=== PATIENT | female | born 1995 | race Two or more races ===

== ENCOUNTER 2024-09-02 08:52 | Outpatient (AMB) | payer BC, SELFPAY ==
[2024-09-02 09:06] VITALS: BP 118/79; PULSE 70; RESP 16; TEMP 35.7; O2SAT 99; BMI 23.4
--- NOTE | 2024-09-02 09:06 | GYNCLNT_ITS ---
Vital Signs 09/02/24 09:06 Height 1.57 m Height Method Stated Weight 58.117 kg Weight Measurement Method Standing Scale BMI 23.4 BP 118/79 Blood Pressure Source Automatic Cuff Blood Pressure Location Left Upper Arm Position Sitting Respiration 16 Pulse 70 Pulse Source Monitor Temp 96.3 F L Temp Source Oral Pulse Oximetry (%) 99 Oxygen Delivery Method Room Air Allergies/Home Meds Allergies & Medications Allergies No Known Allergies Allergy (Verified 09/02/24 09:07) Medication Reconciliation vit no.95-ferrous fumarate 28 mg-folic acid 800 mcg tablet () 1 tab PO QDAY 01/12/24 [History Confirmed 09/02/24] Intake Visit Data Collection New Patient or Established: Established Patient (seen at [facility] within 3 years) Reason for Visit:: Clearance Seen by Clinical Staff ONLY (RN/MA): No Toggle Press Folder And Feeder Required: No Do You Feel Safe at Home: Yes Authorities Contacted: N/A PCP or OBGYN visit in last 3 months: Yes Hx Now: No Pain Present Currently: No Pain Scale Used: Nguyen-Santiago/Numerical Pain scale:: 0 Smoking Status Smoking Status: Never smoker Union Organiser history Union Organiser History Menstrual regularity: regular Flow: normal Monthly: Yes Menopausal: No Currently sexually active: Yes Questionnaires Covid-19 Vaccine Questionnaire Has patient been vacinated for Covid-19 Have you been vacinated for Covid-19: Yes PHQ-9 PHQ-2 Over the last 2 weeks, how often have you been bothered by any of the following problems? 1. Little interest or pleasure in doing things: not at all 2. Feeling down, depressed, or hopeless: not at all Total score: 0 PHQ-9 3. Trouble falling or staying asleep, or sleeping too much: Not at all 4. Feeling tired or having little energy: Not at all 5. Poor appetite or overeating: Not at all 6. Feeling bad about yourself - or that you are a failure or have let yourself or your family down: Not at all 7. Trouble concentrating on things, such as reading the newspaper or watching television: Not at all 8. Moving or speaking so slowly that other people could have noticed? - Or the opposite - being so fidgety or restless that you have been moving around a lot more than usual: not at all 9. Thoughts that you would be better off or of hurting yourself in some way: Not at all Total score: 0 If you checked off any problems, how difficult have these problems made it for you to do your work, take care of things at home, or get along with other people?: not difficult at all Source: Developed by Drs. Franko Tomlinson, Kayla Blount, Arslan Ortiz and colleagues, with an educational mimi from [id number]. Depression screen completed yes Social History Living Situation History Lives With: Family Housing: House Tobacco History Smoking Status: Never smoker Second Hand Smoke Exposure: No Alcohol History Alcohol Intake: Never Domestic Abuse History Do You Feel Safe at Home: Yes Past Medical History Past Medical History Have you ever been diagnosed with any of the following: Cardiology Problems Congestive Heart Failure: No Respiratory Problems Chronic Obstructive Pulmonary Disease (COPD): No Genital/Urinary Problems Renal Disease: No Reproductive Problems Endometriosis: No Genital Herpes: No Gonorrhea: No Pelvic Inflammatory Disease: No Previous Pregnancies: No Syphilis: No Uterine Prolapse: No Endocrine Problems Diabetes Mellitus Type 1: No Diabetes Mellitus Type 2: No Other Problems Cancer: No History of Present Illness HPI Narrative Berenice Hendricks, a patient, presents for clearance to return to work following maternity leave. She gave to a son in December of last year, approximately 7 months ago. The patient reports feeling ready to return to work, though she acknowledges it will be challenging after spending nearly 7 months with her baby. She is seeking a letter clearing her to return to work without restrictions. The patient's last day of maternity leave is September 05, and she plans to return to work on September 09 due to her workplace's spring break schedule. She mentions that her union has informed her she risks termination if she does not return to work. The patient does not report any specific health concerns or complications related to her period. She indicates that she is still using control from a previous prescription and does not require any new prescriptions at this time. Her obstetric history includes one resulting in one live ( A0 L1). She delivered a male infant in December 2023, who is currently about 7 months old. 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 Review of Systems Review of Systems Systems Reviewed: All systems reviewed, normal except as documented Exam General Limitations: no limitations General Appearance: alert, in no apparent distress, comfortable, cooperative, healthy appearing, well developed and well groomed Head Head exam: atraumatic, normocephalic and normal inspection Eye Eye exam: Present normal appearance, PERRL and EOMI ENT ENT exam: Present normal exam, normal oropharynx and mucous membranes moist Neck Neck exam: Present normal inspection, full ROM and trachea midline Chest Chest inspection: Present normal inspection and symmetric chest wall rise Abdominal Abdominal exam: Present soft and normal bowel sounds Psych Psychiatric exam: Present normal affect and normal mood Skin Skin exam: Present warm, dry, intact and normal color Assessment & Plan Diagnosis / Problem List (1) delivery delivered: Status: Acute (2) care and examination: Status: Acute Plan Care and Return to Work Plan: - Provide return to work clearance letter for patient to return on September 09. - Clear patient to return to work with no restrictions. - Offer prescription for control if needed (patient declined due to existing supply). Assessment: - Patient is approximately 7 months . - Infant born in December of last year. - Patient preparing to return to work at [employer]. - Patient appears to be recovering well from childbirth. - No reported complications or concerns. Office Procedures OB Clinic LOC & Office Proc's Nursing/Assessment Patient Status: Established Patient OB Clinic Nursing Assessment: BP Monitoring, Medication Reconciliation, Update PMH in EMR and Vital Signs OB Clinic Coordination of Care: Complex Care and Chronic Disease 1-5, Consent,records obtained, informed consent, Education Simp Pt/Fam and Staff clarify orders Established Patient Charge Established Patient Point Assignment: 100 Established Patient Point Charge: EP Level 3 (80-115)
== END 2024-09-02 09:15 | disposition home or self-care (01) ==
LOC: HODSOBC 08:52
PROVIDERS: Supervising Provider Obstetrics & Gynecology; Visit Provider Obstetrics & Gynecology
DX: Z39.2 Encounter for routine postpartum follow-up (principal)
CPT/HCPCS: 99213; G0463

== ENCOUNTER 2025-01-03 11:06 | Emergency (ER) | payer BC, SELFPAY ==
[2025-01-03 11:42] VITALS: BP 117/80; PULSE 74; RESP 17; TEMP 36.9; O2SAT 100; BMI 23.8
--- NOTE | 2025-01-03 12:04 | XR_ITS ---
Examination: OB Transvaginal ultrasound of the pelvis, complete Technique: Transvaginal sonographic images pelvis performed using pryor scale imaging Exam date and time: January 03, 2025, 1212 hrs. Indications: Revision of otherwise normal . Findings: Uterus 9.5 cm CRL 0.9 cm corresponds to 5 weeks 5 day gestational age. No pole, no cardiac activity Subchorionic hemorrhage 18 mm. Right ovary 2.3 cm arterial flow. Left ovary cm arterial flow, cyst 12 mm Impression: Empty intrauterine gestational sac corresponding to 5 weeks 5 day gestational age Recommend short-term follow-up to confirm viability..
--- NOTE | 2025-01-03 12:06 | EDNOTE_ITS ---
<Statement entered by Mayra Medley MD - 01/04/25 06:28> As co-signing physician, I was present and available for consult prn. I concur with the plan and care as documented by the midlevel provider. ED OB Contraction Preg RMI/HPI General Chief complaint: Recheck/Abnormal Lab/Rx Stated complaint: 7 weeks OB, rule out ectopic Time Seen by Provider: 01/03/25 11:12 Arrival date/time: 01/03/25 11:06 RME / HPI RME / HPI Narrative: 29-year-old female patient came in for evaluation regarding concern about possible ectopic . Patient is a 2 para 1, about 7 weeks , was [facility] to rule out ectopic . Patient's been complaining of low back pain and right shoulder pain. Patient denies any vaginal bleeding denies any spotting denies any abdominal pain patient is ambulatory. Denies any other complaints. She had an ultrasound done in the clinic and they cannot find gestational sac intrauterine. Related Data Home Medications ?Medication ?Instructions ?Recorded ?Confirmed vit no.95-ferrous 1 tab PO QDAY 01/12/2408/19 fumarate 28 mg-folic acid 800 mcg tablet () Allergies Allergy/AdvReac Type Severity Reaction Status Date / Time No Known Allergies Allergy Verified 01/03/25 11:11 Review of Systems Review of Systems Narrative Review of Systems: Review of system reviewed and within normal limits except mentioned in HPI ED Exam Narrative Physical exam: VITAL SIGNS: Reviewed. GENERAL APPEARANCE: Alert and interactive, follows commands, no acute distress, HEAD AND FACE: Non-traumatic. ENT: PERRL, pink conjunctivitis, eyelid no trauma, Mucous membrane moist. NECK: Supple, nontender, no nuchal rigidity. CHEST: No tenderness, no crepitus, no paradoxical movement, no retractions. LUNGS: Clear, well ventilated, symmetric, no rales, no wheezing, no ronchi, no stridor, good breath sounds bilaterally. HEART: Regular rate, regular rhythm, no murmur, no gallops. ABDOMEN: Soft, positive bowel sounds, nondistended, no guarding, nontender, no rebound, no masses, RECTAL: Deferred. GENITAL: Deferred. NEUROLOGICAL: Gross motor function intact sensory function intact, Appropriate for age. MUSCULOSKELETAL: low back nontender, full range of motion. EXTREMITIES: Nontender, full range of motion. SKIN: Color pink, dry, no rash, no lacerations, no abrasions, no contusions. LYMPHATICS: Deferred. Course Quality Measures none Orders Category Date Time Status US OB transvaginal Stat Exams 01/03/25 12:04 Completed ABO/RH Type Stat Lab 01/03/25 13:31 Completed Basic Metabolic Panel Stat Lab 01/03/25 13:31 Completed Beta HCG,Quantitative Stat Lab 01/03/25 13:31 Completed CBC Stat Lab 01/03/25 13:31 Completed Urinalysis Stat Lab 01/03/25 13:29 Completed Vital Signs Vital signs: Vital Signs Temperature 98.5 F 01/03/25 11:42 Pulse Rate 74 01/03/25 11:42 Respiratory Rate 17 01/03/25 11:42 Blood Pressure 117/80 01/03/25 11:42 Pulse Oximetry (%) 100 01/03/25 11:42 Oxygen Delivery Method Room Air 01/03/25 11:42 OB/Uterine Contractions MDM Narrative MDM Narrative:: 29-year-old female patient came in for evaluation regarding concern about possible ectopic . Patient is a 2 para 1, about 7 weeks , was [facility] to [facility] out ectopic . Patient's been complaining of low back pain and right shoulder pain. Patient denies any vaginal bleeding denies any spotting denies any abdominal pain patient is ambulatory. Denies any other complaints. She had an ultrasound done in the clinic and they cannot find gestational sac intrauterine. CBC came back unremarkable. BMP unremarkable. Urinalysis no UTI. Patient hCG was noted to be 8267. Ultrasound showed small subchorionic hemorrhage, empty gestational sac about 5 weeks gestation. Results discussed with the patient and was also given a copy of her ultrasound. She is stable for discharge home Patient data External records reviewed:: None Clinical information provided by:: patient Social determinants that could affect healthcare access:: none Patient has the following chronic illnesses:: None How is presenting disease/condition affected by chronic disease/condition?: no chronic disease Evaluation data The following diagnostics were reviewed and interpreted by me:: lab results and radiology exam(s) Lab and/or radiology exams considered but not ordered:: None Interpretation Summary: See results MDM Medications / Prescriptions Medications or Prescriptions considered but not ordered:: None Medication administrations:: None Consultations Consultation(s) initiated? (list below): No Diagnosis OB Contractions Differential Diagnosis: other (Ectopic , subchorionic hemorrhage, ) Most likely diagnosis given after review of the tests above:: , subchorionic hemorrhage Admission Indicated Admission indicated?: not indicated Explain why admission is indicated or not indicated:: None Admission Request Was there a request for admission?: No Disposition Plan Disposition Plan: Discharge Discharge Attestation Discharge Attestation: The patient and all family members were given an opportunity to ask questions and understood the discharge instructions. Discharge instructions specifically effects, indications for sooner follow up or return to the emergency department, and the expected course of current diagnosis. Patient condition: Stable Discharge Plan Plan Patient Disposition: HOME (Self Care) Discharge Disposition comment: stable Prescriptions/Referrals Prescriptions/Med Rec: No Action PNV no.95-ferrous fumarate-FA [] 28 mg iron- 800 mcg tablet 1 tab PO QDAY Patient Comments: TAKE 1 TABLET BY MOUTH EVERY DAY Referrals: Matthew Monteiro MD [Primary Care Provider] - In 1 week Problem List Clinical Impression: Currently , Subchorionic hemorrhage Patient/Caregiver Discharge Instructions Discharge Activity: activity as tolerated Education Materials: First Trimester Additional Instructions: Thank you for the opportunity for serving you today. You are stable for discharged . You are advised to: Follow-up with your YARN MAN in 1 to 2 days Return to ED for worsening of symptoms Increase oral fluids No jumping, no running, no lifting, until cleared by [facility] Print Language: Polish Stand Alone Forms: Bronwyn Award Info., Patient Portal Info Letter CANDIDO/ERNESTO Supervising Physician JEFFERSON Supervising Physician: MD Jasmyne
[2025-01-03 13:38] LABS: Collection Type, Urine Clean Catch; RBC,Urine 0 /hpf (0-3)
[2025-01-03 13:44] LABS: Basophils # (Auto) 0.1 Thou/mm3 (0.0-0.2); Basophils % (Auto) 1 % (0-2.5); Eosinophils # (Auto) 0.3 Thou/mm3 (0.0-0.5); Eosinophils % (Auto) 3 % (0-10); Hematocrit 45.5 % (36.0-46.0); Hemoglobin 15.4 g/dL (12.0-16.0); Immature Granulocytes Auto 0.01 Thou/mm3 (0.00-0.00); Lymphocytes # (Auto) 2.4 Thou/mm3 (1.0-4.8); Lymphocytes % (Auto) 24 % (10-50); Mean Corpuscular HGB Conc 33.8 g/dl (31.0-37.0); Mean Corpuscular Hemoglobin 30.2 pg (25.0-35.0); Mean Corpuscular Volume 89 fL (80-100); Monocytes # (Auto) 0.5 Thou/mm3 (0.0-0.8); Monocytes % (Auto) 5 % (0-12); Neutrophils # (Auto) 6.7 Thou/mm3 (1.8-7.7); Neutrophils % (Auto) 68 % (37-80); Nucleated Red Blood Cell # 0.00 Thou/mm3 (0.00-0.00); Nucleated Red Blood Cell % 0 /100 WBC (0); Platelet Count 390 Thou/mm3 (140-440); RDW Standard Deviation 42.0 fL (36.4-46.3); Red Blood Count 5.10 Miln/mm3 (4.00-5.20); White Blood Count 9.9 Thou/mm3 (3.6-11.0)
[2025-01-03 13:53] LABS: Bacteria,Urine Rare; Bilirubin,Urine Negative (Negative); Blood,Urine Negative (Negative); Clarity,Urine Clear (Clear/Hazy); Color,Urine Colorless (Lt Yel-Yel); Glucose, Urine Negative (Negative); Ketones,Urine Negative (Negative); Nitrite,Urine Negative (Negative); PH,Urine 6.5 (5.0-7.0); Protein,Urine Negative (Neg - Trace); Specific Gravity,Urine 1.010 (1.001-1.035); Squamous Epithelial Cell,Urine 4 /hpf (0-5); Urobilinogen,Urine Negative mg/dL (0.0-1.0); WBC,Urine 1 /hpf (0-5)
[2025-01-03 13:57] LABS: Leukocyte Esterase,Urine Negative (Negative)
[2025-01-03 14:00] LABS: Anion Gap 12 (7-16); BUN/Creatinine Ratio 10 Ratio (12-20); Blood Urea Nitrogen 6 mg/dL (9-23); Calcium 10.5 mg/dL (8.3-10.6); Carbon Dioxide 22.3 mMol/L (20.0-31.0); Chloride 105 mMol/L (98-107); Creatinine (Component) 0.6 mg/dL (0.6-1.3); Estimated Creatinine Clearance 109.4 mL/min (>60); Glucose 89 mg/dL (74-106); Osmolality,Calculated 274 (275-295); Potassium 3.8 mMol/L (3.4-5.1); Sodium 139 mMol/L (136-145); eGFR > 60 See Note
[2025-01-03 14:25] LABS: Beta HCG,Quantitative 8267 mIU/mL (<5.0)
[2025-01-03 14:49] VITALS: BP 116/66; PULSE 69; RESP 18; TEMP 36.1; O2SAT 100
== END 2025-01-03 14:50 | disposition home or self-care (01) ==
PROVIDERS: Nurse Practitioner Family; Emergency Provider Emergency Medicine; PCP Family Medicine
DX: O20.8 Other hemorrhage in early pregnancy (principal); Z3A.01 Less than 8 weeks gestation of pregnancy
CPT/HCPCS: 36415; 76817; 80048; 81001; 84702; 85025; 86900; 86901; 99283

== ENCOUNTER 2025-01-14 10:36 | Emergency (ER) | payer BC, SELFPAY ==
--- NOTE | 2025-01-14 11:12 | XR_ITS ---
Examination: Complete OB ultrasound, less than 14 weeks, transabdominal Date and time of exam: 01/14/2025, 12:09 PM. INDICATION: Blood clots. COMPARISON: 01/03/2025 Technique: Obstetrical ultrasound images less than 14 weeks performed via transabdominal imaging Findings: Uterus measures 11.1 x 4.7 x 6.0 cm. No evidence of gestational sac or pole.. Normal-appearing 7 mm endometrial stripe. Bilateral ovaries are within normal limits. No evidence fluid in the cul-de-sac. IMPRESSION: No evidence of intrauterine seen at this time. .
[2025-01-14 11:14] VITALS: BP 127/90; PULSE 76; RESP 16; TEMP 37.2; O2SAT 97; BMI 23.8
[2025-01-14 11:43] LABS: Basophils # (Auto) 0.1 Thou/mm3 (0.0-0.2); Basophils % (Auto) 1 % (0-2.5); Eosinophils # (Auto) 0.4 Thou/mm3 (0.0-0.5); Eosinophils % (Auto) 4 % (0-10); Hematocrit 42.9 % (36.0-46.0); Hemoglobin 14.8 g/dL (12.0-16.0); Immature Granulocytes Auto 0.01 Thou/mm3 (0.00-0.00); Lymphocytes # (Auto) 2.1 Thou/mm3 (1.0-4.8); Lymphocytes % (Auto) 27 % (10-50); Mean Corpuscular HGB Conc 34.5 g/dl (31.0-37.0); Mean Corpuscular Hemoglobin 30.5 pg (25.0-35.0); Mean Corpuscular Volume 89 fL (80-100); Monocytes # (Auto) 0.5 Thou/mm3 (0.0-0.8); Monocytes % (Auto) 6 % (0-12); Neutrophils # (Auto) 4.9 Thou/mm3 (1.8-7.7); Neutrophils % (Auto) 61 % (37-80); Nucleated Red Blood Cell # 0.00 Thou/mm3 (0.00-0.00); Nucleated Red Blood Cell % 0 /100 WBC (0); Platelet Count 342 Thou/mm3 (140-440); RDW Standard Deviation 41.0 fL (36.4-46.3); Red Blood Count 4.85 Miln/mm3 (4.00-5.20); White Blood Count 7.9 Thou/mm3 (3.6-11.0)
[2025-01-14 12:01] LABS: Alanine Aminotransferase 14 U/L (10-49); Albumin, Serum 4.7 gm/dL (3.5-5.0); Albumin/Globulin Ratio 1.6 (1.2-2.2); Alkaline Phosphatase 63 U/L (46-116); Anion Gap 6 (7-16); Aspartate Amino Transferase 17 U/L (0-34); BUN/Creatinine Ratio 8 Ratio (12-20); Bilirubin,Total 1.2 mg/dL (0.3-1.2); Blood Urea Nitrogen < 5 mg/dL (9-23); Calcium 10.1 mg/dL (8.3-10.6); Calcium (Corrected) 10.1 mg/dL (8.5-10.1); Carbon Dioxide 26.1 mMol/L (20.0-31.0); Chloride 108 mMol/L (98-107); Creatinine (Component) 0.6 mg/dL (0.6-1.3); Estimated Creatinine Clearance 109.4 mL/min (>60); Globulin 2.9 gm/dL (2.3-3.5); Glucose 88 mg/dL (74-106); Osmolality,Calculated 275 (275-295); Potassium 3.8 mMol/L (3.4-5.1); Sodium 140 mMol/L (136-145); Total Protein 7.6 gm/dL (5.7-8.2); eGFR > 60 See Note
[2025-01-14 12:10] LABS: Beta HCG,Quantitative 3236 mIU/mL (<5.0)
--- NOTE | 2025-01-14 13:35 | EDNOTE_ITS ---
ED OB Contraction Preg RMI/HPI General Chief complaint: Vaginal Bleeding Stated complaint: HEAVY BLEEDING & CRAMPING; PREG 7W Time Seen by Provider: 01/14/25 11:12 Arrival date/time: 01/14/25 10:36 29-year-old female approximately 7 weeks presents for concerns for vaginal bleeding ongoing x 1 day Limitations: no limitations Related Data Home Medications ?Medication ?Instructions ?Recorded ?Confirmed vit no.95-ferrous 1 tab PO QDAY 01/12/2408/19 fumarate 28 mg-folic acid 800 mcg tablet () Allergies Allergy/AdvReac Type Severity Reaction Status Date / Time No Known Allergies Allergy Verified 01/14/25 10:39 Review of Systems Review of Systems Systems Reviewed: All systems reviewed, normal except as documented Constitutional Constitutional: Reports system reviewed and no additional complaints, except as documented, Denies fever(s) and Denies headache(s) Eyes Eyes: Reports system reviewed and no additional complaints, except as documented and Denies blurry vision ENT Ears, Nose, Mouth, and Throat: Reports system reviewed and no additional complaints, except as documented, Denies headache(s), Denies nasal congestion and Denies nasal discharge Cardiovascular Cardiovascular: Reports system reviewed and no additional complaints, except as documented, Denies chest pain and Denies dyspnea Respiratory Respiratory: Reports system reviewed and no additional complaints, except as documented, Denies chest congestion, Denies cough and Denies dyspnea Gastrointestinal Gastrointestinal: Reports system reviewed and no additional complaints, except as documented and Denies abdominal pain Genitourinary Genitourinary: Reports system reviewed and no additional complaints, except as documented and Reports abnormal vaginal bleeding Integumentary/Breasts Skin/Breast: Reports system reviewed and no additional complaints, except as documented and Denies rash Neurologic Neurologic: Reports system reviewed and no additional complaints, except as documented, Reports as per HPI and Denies headache(s) Past Medical History Past Medical History NEUROLOGIC: Negative Neurological Disorders CARDIAC: Negative Cardiac Disorders or Congestive Heart Failure RESPIRATORY: Negative Chronic Obstructive Pulmonary Disease (COPD) GASTROINTESTINAL: Negative Gastrointestinal Disorders GENITOURINARY: Negative Genitourinary Disorders or Renal Disease REPRODUCTIVE: Negative Endometriosis, Genital Herpes, Gonorrhea, Pelvic Inflammatory Disease, Previous Pregnancies, Syphilis or Uterine Prolapse MUSCULOSKELETAL: Negative Musculoskeletal Disorders ENDOCRINE: Negative Endocrine Disorders, Diabetes Mellitus Type 1 or Diabetes Mellitus Type 2 HEMATOLOGIC: Negative Blood Disorders OTHER HISTORY: Negative Cancer Family History FAMILY HISTORY: Positive Family Cardiac Disorders (mother- htn) and Family Cancer (father- blood); Negative Family Psychiatric Problems, Family Respiratory Disorders or Family Gastrointestinal Problems Social History SMOKING STATUS: Never smoker SECOND HAND EXPOSURE: No ED Exam General Limitations: Present no limitations General appearance: Present alert and in no apparent distress Head Head exam: Present atraumatic, normocephalic and normal inspection Eye Eye exam: Present normal appearance, PERRL and EOMI; Absent conjunctival injection ENT ENT exam: Present normal exam, normal oropharynx and mucous membranes moist Neck Neck exam: Present normal inspection, full ROM and trachea midline Chest Chest inspection: Present normal inspection and symmetric chest wall rise Respiratory Respiratory exam: Present normal lung sounds bilaterally; Absent respiratory distress Cardiovascular Cardiovascular exam: Present regular rate, normal rhythm and normal heart sounds Abdominal Exam Abdominal exam: Present soft and normal bowel sounds; Absent distention, tenderness, guarding, rebound or rigidity Extremities Exam Extremities exam: Present normal inspection and full ROM Back Exam Back exam: Present normal inspection and full ROM Neurological Exam Neurological exam: Present alert, oriented X3 and CN II-XII intact Psychiatric Psychiatric exam: Present normal affect and normal mood Skin Skin exam: Present warm, dry, intact and normal color Course Quality Measures none Orders Category Date Time Status US OB <= 14 weeks fetus Stat Exams 01/14/25 11:12 Completed Beta HCG,Quantitative Stat Lab 01/14/25 11:19 Completed CBC Stat Lab 01/14/25 11:19 Completed Comprehensive Metabolic Panel Stat Lab 01/14/25 11:19 Completed Vital Signs Vital signs: Vital Signs Temperature 99.0 F 01/14/25 11:14 Pulse Rate 76 01/14/25 11:14 Respiratory Rate 16 01/14/25 11:14 Blood Pressure 127/90 H 01/14/25 11:14 Pulse Oximetry (%) 97 01/14/25 11:14 Oxygen Delivery Method Room Air 01/14/25 11:14 O2 saturation 97% on room air within the limits Vaginal Bleeding MDM Narrative MDM Narrative: 29-year-old female approximately 7 weeks presents for concerns for vaginal bleeding ongoing x 1 day On exam patient well-appearing patient does not appear ill or toxic no acute distress patient is soft nontender abdomen Lab work and imaging obtained Lab work as well as imaging are concerning for in progress. Consultation: Spoke with Dr. Estrada who states he can see the patient as office tomorrow 2 PM At time of discharge patient stable condition has no active bleeding Patient data External records reviewed:: [facility] previous records Clinical information provided by:: patient Social determinants that could affect healthcare access:: none Patient has the following chronic illnesses:: None How is presenting disease/condition affected by chronic disease/condition?: no chronic disease Evaluation data The following diagnostics were reviewed and interpreted by me:: lab results and radiology exam(s) Lab and/or radiology exams considered but not ordered:: Labs radiology obtained Interpretation Summary: Reviewed by me Medications / Prescriptions Medications or Prescriptions considered but not ordered:: No meds Medication administrations:: No meds Consultations Consultation(s) initiated? (list below): Yes Consultation #1 (Physician, Specialty, Details): dr estrada Diagnosis Vaginal Bleeding Differential Diagnosis: missed , threatened and dysfunctional uterine bleeding Most likely diagnosis given after review of the tests above:: Missed Admission Indicated Admission indicated?: not indicated Admission Request Was there a request for admission?: No Disposition Plan Disposition Plan: Discharge Discharge Attestation Discharge Attestation: The patient and all family members were given an opportunity to ask questions and understood the discharge instructions. Discharge instructions specifically effects, indications for sooner follow up or return to the emergency department, and the expected course of current diagnosis. Patient condition: Stable Discharge Plan Plan Patient Disposition: HOME (Self Care) Discharge Disposition comment: stable Prescriptions/Referrals Prescriptions/Med Rec: No Action PNV no.95-ferrous fumarate-FA [] 28 mg iron- 800 mcg tablet 1 tab PO QDAY Patient Comments: TAKE 1 TABLET BY MOUTH EVERY DAY Referrals: Jc Estrada MD [Physician] - 01/15/25 2:00 pm No Primary/Family,Physician [Primary Care Provider] - In 1 week Problem List Clinical Impression: , missed Patient/Caregiver Discharge Instructions Education Materials: Understanding Miscarriage ... Additional Instructions: Please see Dr. Estrada tomorrow after 1 PM for worsening symptoms return immediately Please inform the office staff that I spoke with Dr. Estrada and that he states he will see you after 1 PM tomorrow Print Language: Estonian Stand Alone Forms: Bronwyn Award Info., Work/School Release, Patient Portal Info Letter PA/ORDER CLERK Supervising Physician PA/ORDER CLERK Supervising Physician: Dr. dyer
== END 2025-01-14 13:51 | disposition home or self-care (01) ==
PROVIDERS: Emergency Provider Nurse Practitioner Primary Care
DX: O02.1 Missed abortion (principal)
CPT/HCPCS: 36415; 76801; 80053; 84702; 85025; 99283

== ENCOUNTER 2025-01-15 13:32 | Outpatient (AMB) | payer BC, SELFPAY ==
--- NOTE | 2025-01-15 13:43 | GYNCLNT_ITS ---
Vital Signs 01/15/25 13:48 Height 1.57 m Height Method Stated Weight 58.117 kg Weight Measurement Method Standing Scale BMI 23.6 BP 114/70 Blood Pressure Source Automatic Cuff Blood Pressure Location Left Upper Arm Position Sitting Respiration 14 Pulse 66 Pulse Source Monitor Temp 98.8 F Temp Source Oral Pulse Oximetry (%) 99 Oxygen Delivery Method Room Air Allergies/Home Meds Allergies & Medications Allergies No Known Allergies Allergy (Verified 01/15/25 13:49) Medication Reconciliation vit no.95-ferrous fumarate 28 mg-folic acid 800 mcg tablet () 1 tab PO QDAY 01/12/24 [History Confirmed 01/15/25] estradiol-norethindrone acet 1 mg-0.5 mg tablet 1 tab PO QDAY 84 days #84 tabs 01/15/25 [Rx] Intake Visit Data Collection New Patient or Established: Established Patient (seen at [facility] within 3 years) Reason for Visit:: EMERGENCY ROOM FOLLOW UP Seen by Clinical Staff ONLY (RN/MA): No Director E Learning Required: No Do You Feel Safe at Home: Yes Authorities Contacted: N/A PCP or OBGYN visit in last 3 months: Yes Hx Now: No Are you currently on any form of Control: No Pain Present Currently: No Pain Scale Used: Nguyen-Santiago/Numerical Pain scale:: 0 Smoking Status Smoking Status: Never smoker Regulatory And Compliance Technician history Regulatory And Compliance Technician History Menstrual regularity: irregular Flow: normal Monthly: No How many days does period last: 5 Age at menarche: 11 Currently sexually active: Yes [employer]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 1. Little interest or pleasure in doing things: not at all 2. Feeling down, depressed, or hopeless: not at all Total score: 0 PHQ-9 3. Trouble falling or staying asleep, or sleeping too much: Not at all 4. Feeling tired or having little energy: Not at all 5. Poor appetite or overeating: Not at all 6. Feeling bad about yourself - or that you are a failure or have let yourself or your family down: Not at all 7. Trouble concentrating on things, such as reading the newspaper or watching television: Not at all 8. Moving or speaking so slowly that other people could have noticed? - Or the opposite - being so fidgety or restless that you have been moving around a lot more than usual: not at all 9. Thoughts that you would be better off or of hurting yourself in some way: Not at all Total score: 0 Source: Developed by Drs. Franko Tomlinson, Kayla Blount, Arslan Ortiz and colleagues, with an educational mimi from [employer]. Depression screen completed yes Social History Living Situation History Lives With: Family Housing: House Tobacco History Smoking Status: Never smoker Second Hand Smoke Exposure: No Alcohol History Alcohol Intake: Never Domestic Abuse History Do You Feel Safe at Home: Yes History of Present Illness HPI Narrative Berenice Hendricks presents for follow-up after a completed miscarriage. She initially discovered she was approximately two weeks ago and was diagnosed with a subchorionic hemorrhage in the emergency room. The patient reports that she began experiencing light bleeding about a week ago, which she initially thought was normal. Two nights ago, she developed heavy bleeding and cramping, prompting her to return to the emergency room yesterday. During this visit, she experienced a miscarriage, which was confirmed by ultrasound to be complete with no retained products of conception. She has a history of one previous full-term resulting in a live . Berenice expresses concern about the possibility of experiencing another miscarriage in the future. She also mentions that during her previous , she was prescribed control pills that caused her to bleed twice a month and were subsequently discontinued. The patient is currently not working and is scheduled to return to her job at [employer] on Sunday. She is taking a multivitamin. She previously took control pills which were discontinued due to causing bleeding twice a month. She has an obstetric history of G2 T1 L1. She works as a teacher at [employer]. ROS: Genitourinary: Positive for vaginal bleeding. Exam General General Appearance: alert, in no apparent distress and healthy appearing Head Head exam: atraumatic Neck Neck exam: Present normal inspection and trachea midline Chest Chest inspection: Present normal inspection and symmetric chest wall rise External exam: Present normal external exam; Absent tenderness Neuro Neurological exam: Present oriented X3 Psych Psychiatric exam: Present normal affect and normal mood Office Procedures OB Clinic LOC & Office Proc's Nursing/Assessment Patient Status: Established Patient OB Clinic Nursing Assessment: Medication Reconciliation, Update PMH in EMR and Vital Signs OB Clinic Coordination of Care: Complex Care and Chronic Disease 1-5, Consent,records obtained, informed consent, Education Simp Pt/Fam, Lab and Imaging orders, Results/Orders obtained and Staff clarify orders Established Patient Charge Established Patient Point Assignment: 105 Established Patient Point Charge: EP Level 3 (80-115) Assessment & Plan Diagnosis / Problem List (1) Encounter for initial prescription of contraceptive pills: Status: Acute Plan Completed Miscarriage: - Patient presented to emergency room with heavy bleeding and cramping. - Ultrasound confirmed completed miscarriage with no retained products of conception. - Previous subchorionic hemorrhage noted on ultrasound 2 weeks prior. - History of prior full-term ; miscarriage likely due to chromosomal factors. Plan: - No further interventions required for completed miscarriage. - Anticipate next menstrual cycle in approximately one month. - Rest and recovery as needed. - Recommend multivitamin supplementation to aid in recovery. - Patient may resume trying to conceive after next menstrual cycle if desired. - Advised to return if any concerns arise. Contraceptive Counseling: - Patient expresses interest in restarting contraception. - Previous oral contraceptive caused abnormal bleeding (twice monthly). Plan: - Prescribe new oral contraceptive, different from previous prescription. - Patient may start contraception immediately upon obtaining prescription.
[2025-01-15 13:48] VITALS: BP 114/70; PULSE 66; RESP 14; TEMP 37.1; O2SAT 99; BMI 23.6
== END 2025-01-15 13:55 | disposition home or self-care (01) ==
LOC: HODSOBC 13:32
PROVIDERS: Supervising Provider Obstetrics & Gynecology; Visit Provider Obstetrics & Gynecology
DX: O03.9 Complete or unspecified spontaneous abortion without complication (principal); Z30.011 Encounter for initial prescription of contraceptive pills
CPT/HCPCS: 99213; G0463